=== PATIENT | female | born 1985 | race Caucasian/White ===

== ENCOUNTER 2016-12-01 14:10 | Emergency (ER) | payer BC, MEDICAID ==
[~2016-12-01] VITALS: Ht 149.9 cm; Wt 80.0 kg
[~2016-12-01 14:10] MED LIST: AZIT500T3 PO; BACTDS PO; BEN50 PO; CIPR500T4 PO; HYDR-3498 PO; IBUP-1542 PO; IBUP800T25 PO; LEVO500T72 PO; METR500T PO; ONDA4TAB35 PO; PRED20TA PO
[2016-12-01 14:40] VITALS: Ht 149.9 cm; Wt 80.0 kg
[2016-12-01] MEDS ORDERED: LIDOCAINE/MYLANTA 40 ML BTL PO STA (17:59)
[2016-12-01 18:11] LABS: ADD SCAN DIFF NO
[2016-12-01 18:16] LABS: BASOPHILS % 0.2 % (0.0-2.0); EOSINOPHILS # 0.2 10^3/ul (0.0-0.5); EOSINOPHILS % 1.9 % (0.0-7.0); HEMATOCRIT 42.9 % (37.0-47.0); HEMOGLOBIN 14.2 g/dl (12.0-16.0); MEAN CORPUSCULAR HEMOGLOBIN 29.6 pg (29.0-33.0); MEAN CORPUSCULAR HGB CONC 33.1 g/dl (32.0-37.0); MEAN CORPUSCULAR VOLUME 89.4 fl (82.0-101.0); MEAN PLATELET VOLUME 11.1 fl (7.4-10.4); MONOCYTE # 0.6 10^3/ul (0.3-0.9); MONOCYTES % 6.1 % (0.0-11.0); NEUTROPHIL # 6.2 10^3/ul (1.6-7.5); NEUTROPHILS % 61.4 % (39.0-77.0); PLATELET COUNT 232 10^3/UL (140-415); RED CELL DISTRIBUTION WIDTH 12.4 % (11.5-14.5); WHITE BLOOD COUNT 10.1 10^3/ul (4.8-10.8)
[2016-12-01 18:36] LABS: ALBUMIN 4.4 g/dl (3.3-4.9); ALBUMIN/GLOBULIN RATIO 1.51; BILIRUBIN,INDIRECT 0.1 mg/dl (0-1.1); BILIRUBIN,TOTAL 0.1 mg/dl (0.2-1.3); CALCIUM 9.6 mg/dl (8.4-10.2); POTASSIUM 3.7 mmol/L (3.5-5.1); TOTAL PROTEIN 7.3 g/dl (6.1-8.1)
--- NOTE | 2016-12-01 18:38 | ERD ---
ER Documentation Chief Complaint Date/Time DATE: 12/01/16 TIME: 18:37 Chief Complaint AP HPI 31-year-old female with history of obesity comes emergency room with epigastric pain for the past week and a half. Patient states that it is localized in the epigastric region for the most part and radiates upwards to the chest, constant , dull. She has not tried anything for this. She reports mild nausea. No fevers or chills, vomiting or diarrhea. ROS All systems reviewed and are negative except as per history of present illness. Medications Home Meds Active Scripts Ondansetron (Ondansetron Odt) 4 Mg Tab.rapdis, 4 MG PO Q6H Y for NAUSEA AND/OR VOMITING, #10 TAB Prov:FLORENTINO KRISHNAMURTHY PA-C 12/01/16 Omeprazole* (Omeprazole*) 20 Mg Capsule.dr, 20 MG PO DAILY, #30 Prov:FLORENTINO KRISHNAMURTHY PA-C 12/01/16 Ranitidine Hcl* (Zantac*) 150 Mg Tablet, 150 MG PO BID Y for EPIGASTRIC PAIN, # 30 TAB Prov:FLORENTINO KRISHNAMURTHY PA-C 12/01/16 Ibuprofen* (Motrin*) 600 Mg Tab, 600 MG PO Q6 Y for FEVER, #30 TAB Prov:IMTIAZ GUTIERREZ MD 09/01/15 Azithromycin* (Zithromax*) 500 Mg Tablet, 500 MG PO DAILY for 7 Days, TAB Prov:IMTIAZ GUTIERREZ MD 09/01/15 Ciprofloxacin Hcl* (Ciprofloxacin Hcl*) 500 Mg Tablet, 500 MG PO BID for 3 Days , TAB Prov:RIO VELARDE MD 04/10/15 Ibuprofen* (Motrin*) 800 Mg Tab, 800 MG PO Q6H Y for PAIN AND OR ELEVATED TEMP, #30 TAB Prov:RIO VELARDE MD 04/10/15 Sulfamethoxazole-Trimethoprim* (Bactrim* DS) 800-160 Mg Tab, 1 TAB PO BID for 10 Days, TAB Prov:FLORENTINO KRISHNAMURTHY PA-C 01/12/15 Diphenhydramine Hcl* (Benadryl*) 50 Mg Cap, 50 MG PO Q6 Y for ITCHING, #14 Prov:FLORENTINO KRISHNAMURTHY PA-C 01/12/15 Prednisone* (Prednisone*) 20 Mg Tab, 20 MG PO BID for 5 Days Prov:FLORENTINO KRISHNAMURTHY PA-C 01/12/15 Metronidazole* (Flagyl*) 500 Mg Tablet, 500 MG PO TID for 7 Days, TAB Prov:JAY LÓPEZ MD 01/10/15 Levofloxacin* (Levaquin*) 500 Mg Tablet, 500 MG PO DAILY for 7 Days, TAB Prov:JAY LÓPEZ MD 01/10/15 Hydrocodone Bit-Acetaminophen* ([place]*) 5-325 Mg Tab, 1 TAB PO Q6 Y for PAIN, # 20 TAB Prov:JAY LÓPEZ MD 01/10/15 Ondansetron Hcl* (Zofran* ODT) 4 mg -ODT Tab.disper, 4 MG PO Q6 Y for NAUSEA AND /OR VOMITING, #10 TAB Prov:JAY LÓPEZ MD 01/10/15 Allergies Allergies: Coded Allergies: No Known Drug Allergy (Verified Allergy, Mild, 12/01/16) PMhx/Soc History of Surgery: No Anesthesia Reaction: No Hx Neurological Disorder: No Hx Respiratory Disorders: No Hx Cardiac Disorders: No Hx Psychiatric Problems: No Hx Miscellaneous Medical Probl: No Hx Alcohol Use: No Hx Substance Use: No Hx Tobacco Use: No Smoking Status: Never smoker Physical Exam Vitals Vital Signs Date Time Temp Pulse Resp B/P Pulse Ox O2 Delivery O2 Flow Rate FiO2 12/01/16 14:40 98.5 72 18 132/59 98 Physical Exam General: Well-developed, well-nourished. The patient appears in no acute distress. HEENT: Head is normocephalic, atraumatic. No scleral icterus. Neck: Supple. Nontender. Lungs: Clear to auscultation. Normal air movement. Heart: Regular rate and rhythm. S1 and S2 are normal. No murmurs, gallops, or rubs. Abdomen: Soft, tender in the epigastrium, nondistended. Bowel sounds are normoactive. Negative Reinoso sign, no McBurney's tenderness. Extremities: No clubbing or cyanosis. Normal pulses. Moving extremities x 4. No weakness. Neurologic: Alert and oriented 3. No focal deficits. Skin: Normal turgor. No rash or lesions. Result Diagram: 12/01/16180412/01/161804 Results 24 hrs Laboratory Tests Test 12/01/16 18:05 12/01/16 18:15 White Blood Count 10.110^3/ul Red Blood Count 4.8010^6/ul Hemoglobin 14.2g/dl Hematocrit 42.9% Mean Corpuscular Volume 89.4fl Mean Corpuscular Hemoglobin 29.6pg Mean Corpuscular Hemoglobin Concent 33.1g/dl Red Cell Distribution Width 12.4% Platelet Count 40424^3/UL Mean Platelet Volume 11.1fl Neutrophils % 61.4% Lymphocytes % 30.0% Monocytes % 6.1% Eosinophils % 1.9% Basophils % 0.2% Nucleated Red Blood Cells % 0.0/100WBC Neutrophils # 6.210^3/ul Lymphocytes # 3.010^3/ul Monocytes # 0.610^3/ul Eosinophils # 0.210^3/ul Basophils # 0.010^3/ul Nucleated Red Blood Cells # 0.010^3/ul Sodium Level 143mmol/L Potassium Level 3.7mmol/L Chloride Level 107mmol/L Carbon Dioxide Level 24mmol/L Anion Gap 16 Blood Urea Nitrogen 13mg/dl Creatinine 1.00mg/dl Glucose Level 85mg/dl Calcium Level 9.6mg/dl Total Bilirubin 0.1mg/dl Direct Bilirubin 0.00mg/dl Indirect Bilirubin 0.1mg/dl Aspartate Amino Transf (AST/SGOT) 27IU/L Alanine Aminotransferase (ALT/SGPT) 26IU/L Alkaline Phosphatase 92IU/L Total Protein 7.3g/dl Albumin 4.4g/dl Globulin 2.90g/dl Albumin/Globulin Ratio 1.51 Lipase 180U/L Urine Color YELLOW Urine Clarity CLEAR Urine pH 7.0 Urine Specific [place] 1.014 Urine Ketones NEGATIVEmg/dL Urine Nitrite NEGATIVEmg/dL Urine Bilirubin NEGATIVEmg/dL Urine Urobilinogen NEGATIVEmg/dL Urine Leukocyte Esterase TRACELeu/ul Urine Microscopic RBC 1/HPF Urine Microscopic WBC 0/HPF Urine Squamous Epithelial Cells FEW/HPF Urine Hemoglobin NEGATIVEmg/dL Urine Glucose NEGATIVEmg/dL Urine Total Protein 1+mg/dl Current Medications Medications (Trade) Dose Ordered Sig/Denae Route PRN Reason Start Time Stop Time Status Last Admin Dose Admin Miscellaneous Medication (Gi Cocktail (2)) 40 ml ONCE STAT PO 12/01/16 17:59 12/01/16 18:00 DC 12/01/16 18:51 DIAGNOSTIC IMAGING REPORT Patient: MATIAS JOSUE : 1985 Age: 31 Sex: F MR #: [id number] DOS: 12/01/16 1759 Ordering MD: FLORENTINO KRISHNAMURTHY PA-C Location: [facility] Room/Bed: PROCEDURE: US Abdomen. CLINICAL INDICATION: Abdominal pain TECHNIQUE: Multiple real-time images were acquired of the patient's right upper abdomen utilizing a high resolution transducer. COMPARISON: None available FINDINGS: No shadowing gallstone, gallbladder wall thickening or pericholecystic fluid is identified. There is a non mobile, nonshadowing gallbladder polypoid echogenic focus measuring 5 mm, compatible with a polyp. No intra or extrahepatic biliary dilatation is seen. The common bile duct measures 3 mm in diameter. The liver appears unremarkable in size and echotexture. The pancreas is not well visualized due to overlying bowel gas. The right kidney appears unremarkable, measuring 8 cm cm in length. No free fluid is seen. IMPRESSION: No sonographic evidence of cholecystitis. 5 mm gallbladder polyp. RPTAT: VV .Harshad Matthews MD, MD Date Time Electronically viewed and signed by .Harshad Matthews MD, on 12/01/2016 19:31 .O/ CC: FLORENTINO KRISHNAMURTHY PA-C Procedures/MDM ED course: Patient was given a GI cocktail for pain. She was reassessed, and reports that her pain is better after the GI cocktail. MDM: 31-year-old female comes in with epigastric abdominal pain, comes in with likely gastritis versus GERD. There is no evidence of leukocytosis, transaminitis, pain or pancreatitis. Gallbladder ultrasound was unremarkable. No evidence of an acute hepatobiliary process, stable for discharge. Departure Diagnosis: Primary Impression: Abdominal pain Condition: Good FLORENTINO KRISHNAMURTHY PA-C Dec 01, 2016 18:38
[2016-12-01 19:28] LABS: ADD UMIC YES; UR ASCORBIC ACID 20 mg/dL (NEGATIVE); UR BILIRUBIN (Dip) NEGATIVE (NEGATIVE); UR BLOOD (Dip) NEGATIVE (NEGATIVE); UR CLARITY CLEAR (CLEAR); UR COLOR YELLOW (YELLOW); UR GLUCOSE (Dip) NEGATIVE (NEGATIVE); UR KETONES (Dip) NEGATIVE (NEGATIVE); UR LEUKOCYTE ESTERASE (Dip) TRACE Leu/ul (NEGATIVE); UR NITRITE (Dip) NEGATIVE (NEGATIVE); UR RBC 1 /HPF (0-5); UR SPECIFIC GRAVITY (Dip) 1.014 (1.003-1.030); UR SQUAMOUS EPITHELIAL CELL FEW /HPF (FEW); UR TOTAL PROTEIN (Dip) 1+ mg/dl (NEGATIVE); UR UROBILINOGEN (Dip) NEGATIVE (NEGATIVE)
--- NOTE | 2016-12-01 19:31 | RADRPT ---
PROCEDURE: US Abdomen. CLINICAL INDICATION: Abdominal pain TECHNIQUE: Multiple real-time images were acquired of the patient's right upper abdomen utilizing a high resolution transducer. COMPARISON: None available FINDINGS: No shadowing gallstone, gallbladder wall thickening or pericholecystic fluid is identified. There i s a non mobile, nonshadowing gallbladder polypoid echogenic focus measuring 5 mm, compatible with a polyp. No intra or extrahepatic biliary dilatation is seen. The common bile duct measures 3 mm in d iameter. The liver appears unremarkable in size and echotexture. The pancreas is not well visualiz ed due to overlying bowel gas. The right kidney appears unremarkable, measuring 8 cm cm in length. No free fluid is seen. IMPRESSION: No sonographic evidence of cholecystitis. 5 mm gallbladder polyp. RPTAT: VV .Harshad Matthews MD, MD Date Time Electronically viewed and signed by .Harshad Matthews MD, on 12/01/2016 19:31 .O/
[2016-12-01] MEDS ORDERED: RANI150T9 PO (19:41)
[2016-12-01] MEDS ORDERED: OMEP20CA16 PO (19:41)
[2016-12-01] MEDS ORDERED: ONDA4TAB14 PO (19:41)
[2016-12-01 20:23] VITALS: BP 128/68; PULSE 70; RESP 18; TEMP 98.2
== END 2016-12-01 20:24 | disposition home or self-care (01) ==
LOC: FTE 14:10
DX: R10.13 Epigastric pain (principal); R11.0 Nausea; E66.9 Obesity, unspecified; Z68.35 Body mass index [BMI] 35.0-35.9, adult
CPT/HCPCS: 76705; 80053; 81001; 83690; 85025; Z7502; Z7610

== ENCOUNTER 2017-04-05 18:15 | Emergency (ER) | payer BC ==
[~2017-04-05] VITALS: Ht 147.3 cm; Wt 75.5 kg
[~2017-04-05 18:15] MED LIST changes: +OMEP20CA16 PO; +ONDA4TAB14 PO; +RANI150T9 PO
[2017-04-05 18:45] VITALS: Ht 147.3 cm; Wt 75.5 kg
[2017-04-05] MEDS ORDERED: HYDROCODONE/APAP (5/325) TAB PO ONE (21:00)
--- NOTE | 2017-04-05 21:30 | ERD ---
ER Documentation Chief Complaint Chief Complaint tripped/slipped in shower@1600 2day,hit her R sided,head,face,&neck,no KO HPI 31-year-old female presents after trip and fall in the shower and she fell backwards and hit her head. She did not lose consciousness and has not had any nausea or vomiting. She does have pain in the back of her head and neck. She also states that her right ear bled. No active bleeding at this time. She took Motrin for pain which helps temporarily but then it wears off and the pain comes back. ROS All systems reviewed and are negative except as per history of present illness. Medications Home Meds Active Scripts Hydrocodone/Acetaminophen (Elvaston 5-325 Tablet) 1 Each Tablet, 1 EACH PO Q6, #15 TAB Prov:MELONY BAUGH PA-C 04/05/17 Ibuprofen* (Motrin*) 800 Mg Tab, 800 MG PO Q6, #30 TAB Prov:MELONY BAUGH PA-C 04/05/17 Ondansetron (Ondansetron Odt) 4 Mg Tab.rapdis, 4 MG PO Q6H Y for NAUSEA AND/OR VOMITING, #10 TAB Prov:FLORENTINO KRISHNAMURTHY PA-C 12/01/16 Omeprazole* (Omeprazole*) 20 Mg Capsule.dr, 20 MG PO DAILY, #30 Prov:FLORENTINO KRISHNAMURTHY PA-C 12/01/16 Ranitidine Hcl* (Zantac*) 150 Mg Tablet, 150 MG PO BID Y for EPIGASTRIC PAIN, # 30 TAB Prov:FLORENTINO KRISHNAMURTHY PA-C 12/01/16 Ibuprofen* (Motrin*) 600 Mg Tab, 600 MG PO Q6 Y for FEVER, #30 TAB Prov:IMTIAZ GUTIERREZ MD 09/01/15 Azithromycin* (Zithromax*) 500 Mg Tablet, 500 MG PO DAILY for 7 Days, TAB Prov:IMTIAZ GUTIERREZ MD 09/01/15 Ciprofloxacin Hcl* (Ciprofloxacin Hcl*) 500 Mg Tablet, 500 MG PO BID for 3 Days , TAB Prov:RIO VELARDE MD 04/10/15 Ibuprofen* (Motrin*) 800 Mg Tab, 800 MG PO Q6H Y for PAIN AND OR ELEVATED TEMP, #30 TAB Prov:RIO VELARDE MD 04/10/15 Sulfamethoxazole-Trimethoprim* (Bactrim* DS) 800-160 Mg Tab, 1 TAB PO BID for 10 Days, TAB Prov:FLORENTINO KRISHNAMURTHY PA-C 01/12/15 Diphenhydramine Hcl* (Benadryl*) 50 Mg Cap, 50 MG PO Q6 Y for ITCHING, #14 Prov:FLORENTINO KRISHNAMURTHY PA-C 01/12/15 Prednisone* (Prednisone*) 20 Mg Tab, 20 MG PO BID for 5 Days Prov:FLORENTINO KRISHNAMURTHY PA-C 01/12/15 Metronidazole* (Flagyl*) 500 Mg Tablet, 500 MG PO TID for 7 Days, TAB Prov:JAY LÓPEZ MD 01/10/15 Levofloxacin* (Levaquin*) 500 Mg Tablet, 500 MG PO DAILY for 7 Days, TAB Prov:JAY LÓPEZ MD 01/10/15 Hydrocodone Bit-Acetaminophen* ([place]vast[place]*) 5-325 Mg Tab, 1 TAB PO Q6 Y for PAIN, # 20 TAB Prov:JAY LÓPEZ MD 01/10/15 Ondansetron Hcl* (Zofran* ODT) 4 mg -ODT Tab.disper, 4 MG PO Q6 Y for NAUSEA AND /OR VOMITING, #10 TAB Prov:JAY LÓPEZ MD 01/10/15 Allergies Allergies: Coded Allergies: No Known Drug Allergy (Verified Allergy, Mild, 12/01/16) PMhx/Soc Medical and Surgical Hx: pt denies Medical Hx, pt denies Surgical Hx History of Surgery: No Anesthesia Reaction: No Hx Neurological Disorder: No Hx Respiratory Disorders: No Hx Cardiac Disorders: No Hx Psychiatric Problems: No Hx Miscellaneous Medical Probl: No Hx Alcohol Use: No Hx Substance Use: No Hx Tobacco Use: No Smoking Status: Never smoker FmHx Family History: No diabetes Physical Exam Vitals Vital Signs Date Time Temp Pulse Resp B/P Pulse Ox O2 Delivery O2 Flow Rate FiO2 04/05/17 18:45 99.5 79 18 113/69 98 Physical Exam INITIAL VITAL SIGNS: Reviewed by me GENERAL: Awake, alert and oriented x 4, well appearing, nontoxic, speaking in full sentences. No acute distress HEAD: Atraumatic NECK: Supple. No masses. Full range of motion. No meningismus. No midline tenderness. EYES: EOMI. PERRL. EAR: No tenderness over the mastoids bilaterally. No exudates in the canals. TMs nonerythematous. Dried blood in the right ear canal, no active bleeding RESPIRATORY: Clear to auscultation bilaterally. Symmetric chest wall rise. No wheezing or rales. No accessory muscle use. CV: Regular rate and rhythm. No murmurs, rubs, or gallops. EXTREMITIES: No clubbing or cyanosis. No edema. Moving all extremities normally. BACK: No midline tenderness to palpation. No step-offs. SKIN: Warm and dry. No rash or petechiae. NEUROLOGIC: Normal mental status and speech. Face is symmetric. Moves all extremities equally. Motor and sensory distally intact. Normal coordination. Ambulates with a strong steady gait. 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 She is well-appearing in no distress and her neurological examination is normal. It is possible she may have ruptured her tympanic membrane is difficult to tell on physical exam secondary to the bleeding but I explained her this should resolve on its own and she is to continue to take anti-inflammatories and pain medication in the meantime. CT scan of cervical spine and brain was ordered. She was given Elvaston for pain control. Patient's imaging was negative. She was discharged with ibuprofen and Elvaston. He was given copy of the reports she can follow-up with primary care. Patient counseled regarding my diagnostic impression and care plan. Prior to discharge all questions answered. Pt agrees with treatment plan and understands strict return precautions. Pt is instructed to follow up with primary care provider within 24-48 hours. Precautionary instructions provided including instructions to return to the ER if not improving or for any worsening or changing symptoms or concerns. Departure Diagnosis: Primary Impression: Acute head injury Additional Impression: Cervical strain Condition: Stable MELONY BAUGH PA-C Apr 05, 2017 21:30
--- NOTE | 2017-04-05 21:35 | RADRPT ---
PROCEDURE: CT cervical spine without contrast CLINICAL INDICATION: Trauma. Neck pain. TECHNIQUE: CT scan of the cervical spine was performed [facility] No [facility] contrast was administered. Coronal and sagittal reformatted images were obtained from th e axial source images. Images were reviewed on a high-resolution PACS workstation. One or more the f ollowing does reduction techniques were utilized: Automated exposure control, adjustment of the mA/ or kV according to patient's size, or use of iterative reconstruction technique. Exam CTDI = 22.1 mG y and the DLP = 410.02 mGy-cm. COMPARISON: None available. FINDINGS: There is reversal of normal cervical lordosis centered at C4-C5. Alignment remains intact. No acut e fracture or dislocation is seen. The vertebral body heights and disk spaces are preserved. No sig nificant spinal canal or foraminal stenosis is noted. No mass, hematoma, or other soft tissue abnor mality is seen. IMPRESSION: 1. Reversal of normal cervical lordosis centered at C4-C5. 2. No acute fracture or traumatic subluxation. RPTAT: HFN .Leslie Craig MD, MD Date Time Electronically viewed and signed by .Leslie Craig MD, MD on 04/05/2017 21:35 .N/
--- NOTE | 2017-04-05 21:36 | RADRPT ---
PROCEDURE: CT Brain without. CLINICAL INDICATION: Trauma, pain. TECHNIQUE: A CT of the brain was performed on multidetector high-resolution CT scanner utilizing a xial sections from the skull base through the vertex without contrast. The scan was reviewed in sof t tissue brain and high frequency resolution bone algorithm windows. Images were reviewed on a high -resolution PACS workstation. One or more the following does reduction techniques were utilized: Aut omated exposure control, adjustment of the mA/ or kV according to patient's size, or use of iterativ e reconstruction technique. The exam CTDI = 43.05 mGy and the DLP = 630.2 mGy-cm. COMPARISON: None available. FINDINGS: The ventricles and sulci are age-appropriate. There is no intracranial hemorrhage, mass effect or mi dline shift. No abnormal intra-axial or extra-axial fluid collections are seen. The billings/white carlos alberto er differentiation is preserved. No acute skull abnormality is noted. The visualized paranasal sinus es are essentially clear. IMPRESSION: 1. No acute intracranial hemorrhage, transcortical infarction or mass effect. RPTAT: HFN .Leslie Craig MD, MD Date Time Electronically viewed and signed by .Leslie Craig MD, MD on 04/05/2017 21:36 .N/
[2017-04-05] MEDS ORDERED: HYDR-906 PO (21:41)
[2017-04-05] MEDS ORDERED: IBUP800T25 PO (21:41)
[2017-04-05 22:04] VITALS: BP 113/69; PULSE 88; RESP 18; TEMP 99.1
== END 2017-04-05 22:05 | disposition home or self-care (01) ==
LOC: FTE 18:15
DX: S09.90XA Unspecified injury of head, initial encounter (principal); S16.1XXA Strain of muscle, fascia and tendon at neck level, initial encounter; R51 Headache; W18.2XXA Fall in (into) shower or empty bathtub, initial encounter; Y92.9 Unspecified place or not applicable
CPT/HCPCS: 70450; 72125; Z7502; Z7610

== ENCOUNTER 2017-04-29 17:27 | Emergency (ER) | payer BC ==
[~2017-04-29] VITALS: Ht 157.5 cm; Wt 74.6 kg
[~2017-04-29 17:27] MED LIST changes: +HYDR-906 PO
[2017-04-29 17:32] VITALS: Ht 157.5 cm; Wt 74.6 kg
[2017-04-29] MEDS ORDERED: ACETAMINOPHEN 500 MG TAB PO STA (18:06)
[2017-04-29] MEDS ORDERED: ACET500C5 PO (19:06)
[2017-04-29 19:14] VITALS: BP 106/80; PULSE 89; RESP 18; TEMP 98.6
[2017-04-29 19:43] LABS: URINE BLOOD (Dip) POC Trace-lysed (NEGATIVE)
--- NOTE | 2017-04-29 20:15 | RADRPT ---
PROCEDURE: OB Ultrasound. CLINICAL INDICATION: Positive test. Pelvic pain. TECHNIQUE: Ultrasound of the pelvis was performed with transabdominal and transvaginal sonography in the axial and sagittal planes. COMPARISON: No prior study is available for comparison. FINDINGS: There is a single intrauterine gestational sac. pole is not visualized. Yolk sac is present. Mean sac diameter is 0.82 cm. Menstrual age by ultrasound dates is 5 weeks 3 days. This indicates an expected date of delivery of 12/27/2017. The right ovary appears normal measuring 3.9 x 2.6 x 2.4 cm. The left ovary is not visualized. Color Doppler and pulsed Doppler sonography demonstrate normal flow to the right ovary. There is no other pelvic mass or free fluid. IMPRESSION: 1. Single early intrauterine gestational sac with pole not yet visualized. Yolk sac is presen t. 2. Menstrual age by ultrasound dates is 5 weeks 3 days with an expected date of delivery of 018. 3. Left ovary not visualized. 4. Otherwise unremarkable study. RPTAT: QQ .Won Mejia MD, Date Time Electronically viewed and signed by .Won Mejia MD, on 04/29/2017 20:14 .R/
--- NOTE | 2017-04-29 21:28 | ERD ---
ER Documentation Chief Complaint Chief Complaint complains of a fever x 3 days HPI 31-year-old female presented ED complaining of fever 3 days. States that her temperature at home was 100.5. Patient reports body ache, headache, throat pain, and neck pain. Patient also has slight cough and slight diarrhea. She had 2 episode of nonbloody diarrhea. She stated that she found out she is . LMP was 04/01/2017. Denies vaginal bleeding. Denies shortness of breath. Denies abdominal pain, nausea, or vomiting. Denies vaginal bleeding. ROS All systems reviewed and are negative except as per history of present illness. Medications Home Meds Active Scripts Acetaminophen* (Tylophen*) 500 Mg Capsule, 1 CAP PO Q6H Y for PAIN AND OR ELEVATED TEMP, #20 CAP Prov:VERONICA GARCÍA DISC JOCKEY 04/29/17 Hydrocodone/Acetaminophen ([place] 5-325 Tablet) 1 Each Tablet, 1 EACH PO Q6, #15 TAB Prov:MELONY BAUGH PA-C 04/05/17 Ibuprofen* (Motrin*) 800 Mg Tab, 800 MG PO Q6, #30 TAB Prov:MELONY BAUGH PA-C 04/05/17 Ondansetron (Ondansetron Odt) 4 Mg Tab.rapdis, 4 MG PO Q6H Y for NAUSEA AND/OR VOMITING, #10 TAB Prov:FLORENTINO KRISHNAMURTHY PA-C 12/01/16 Omeprazole* (Omeprazole*) 20 Mg Capsule.dr, 20 MG PO DAILY, #30 Prov:FLORENTINO KRISHNAMURTHY PA-C 12/01/16 Ranitidine Hcl* (Zantac*) 150 Mg Tablet, 150 MG PO BID Y for EPIGASTRIC PAIN, # 30 TAB Prov:FLORENTINO KRISHNAMURTHY PA-C 12/01/16 Ibuprofen* (Motrin*) 600 Mg Tab, 600 MG PO Q6 Y for FEVER, #30 TAB Prov:IMTIAZ GUTIERREZ MD 09/01/15 Azithromycin* (Zithromax*) 500 Mg Tablet, 500 MG PO DAILY for 7 Days, TAB Prov:IMTIAZ GUTIERREZ MD 09/01/15 Ciprofloxacin Hcl* (Ciprofloxacin Hcl*) 500 Mg Tablet, 500 MG PO BID for 3 Days , TAB Prov:RIO VELARDE MD 04/10/15 Ibuprofen* (Motrin*) 800 Mg Tab, 800 MG PO Q6H Y for PAIN AND OR ELEVATED TEMP, #30 TAB Prov:RIO VELARDE MD 04/10/15 Sulfamethoxazole-Trimethoprim* (Bactrim* DS) 800-160 Mg Tab, 1 TAB PO BID for 10 Days, TAB Prov:FLORENTINO KRISHNAMURTHY PA-C 01/12/15 Diphenhydramine Hcl* (Benadryl*) 50 Mg Cap, 50 MG PO Q6 Y for ITCHING, #14 Prov:FLORENTINO KRISHNAMURTHY PA-C 01/12/15 Prednisone* (Prednisone*) 20 Mg Tab, 20 MG PO BID for 5 Days Prov:FLORENTINO KRISHNAMURTHY PA-C 01/12/15 Metronidazole* (Flagyl*) 500 Mg Tablet, 500 MG PO TID for 7 Days, TAB Prov:JAY LÓPEZ MD 01/10/15 Levofloxacin* (Levaquin*) 500 Mg Tablet, 500 MG PO DAILY for 7 Days, TAB Prov:JAY LÓPEZ MD 01/10/15 Hydrocodone Bit-Acetaminophen* ([place]*) 5-325 Mg Tab, 1 TAB PO Q6 Y for PAIN, # 20 TAB Prov:JAY LÓPEZ MD 01/10/15 Ondansetron Hcl* (Zofran* ODT) 4 mg -ODT Tab.disper, 4 MG PO Q6 Y for NAUSEA AND /OR VOMITING, #10 TAB Prov:JAY LÓPEZ MD 01/10/15 Allergies Allergies: Coded Allergies: No Known Drug Allergy (Verified Allergy, Mild, 12/01/16) PMhx/Soc Medical and Surgical Hx: pt denies Medical Hx, pt denies Surgical Hx History of Surgery: No Anesthesia Reaction: No Hx Neurological Disorder: No Hx Respiratory Disorders: No Hx Cardiac Disorders: No Hx Psychiatric Problems: No Hx Miscellaneous Medical Probl: No Hx Alcohol Use: No Hx Substance Use: No Hx Tobacco Use: No Smoking Status: Never smoker Physical Exam Vitals Vital Signs Date Time Temp Pulse Resp B/P Pulse Ox O2 Delivery O2 Flow Rate FiO2 04/29/17 19:14 98.6 89 18 106/80 99 Room Air 04/29/17 17:32 98.4 91 20 131/67 100 Physical Exam General: Well-developed, well-nourished, conscious and coherent, in no distress Skin: Warm and dry without rash, good texture and turgor Head: Normocephalic without evidence of trauma Eyes: Sclera and conjunctivae normal; pupils equal, round, and reactive to light; extraocular movements are intact Ears: Canals are patent. Tympanic membranes are clear Nose/Face: Is a mucosa erythematous and swollen. Mouth/throat: Mucous membranes are moist. Posterior pharynx mildly erythematous and swollen without exudates. Neck: Supple without meningismus or adenopathy. Carotids are equal. Trachea midline. No bruits or JVD Chest: Normal AP diameter. Good expansion without retractions. Nontender. Lungs are clear to auscultate bilaterally with good tidal volume Heart: Regular rate and rhythm. No murmur, rub, or gallops heard Abdomen: Soft and nontender without masses, guarding, or rebound. Bowel sounds are active. No hepatosplenomegaly Back: Without spinal or CVA tenderness Pelvis: Nontender to palpation and stable to compression Extremities: Full range of motion. Good strength bilaterally. No clubbing, cyanosis, or edema. Peripheral pulses are intact. Sensation intact Neuro: Alert and oriented 4, GCS 15. Cranial nerves grossly intact. Motor and sensory exams nonfocal. Moves all extremities. Speech clear. Gait normal Results 24 hrs Laboratory Tests Test 04/29/17 19:41 Bedside Urine pH (LAB) 6.0 Bedside Urine Protein (LAB) 2+ Bedside Urine Glucose (UA) Negative Bedside Urine Ketones (LAB) Negative Bedside Urine Blood Trace-lysed Bedside Urine Nitrite (LAB) Negative Bedside Urine Leukocyte Esterase (L Trace Current Medications Medications (Trade) Dose Ordered Sig/Denae Route PRN Reason Start Time Stop Time Status Last Admin Dose Admin Acetaminophen (Tylenol Tab) 500 mg ONCE STAT PO 04/29/17 18:06 04/29/17 18:08 DC 04/29/17 18:21 Procedures/MDM Well-appearing 33-year-old female presented ED with fever and body ache 3 days. Rapid strep and influenza a and B swab were negative. I suspect the patient may have a viral infection. Patient is afebrile, in no respiratory distress. Lungs are clear to auscultate. I doubt that patient has pneumonia or bronchitis. Patient given Tylenol in the ED for pain. Patient stated that she is , but she did not have any vaginal bleeding. I have low suspicion for ectopic . I discharge patient for viral infection. After patient's discharge, she complained to charge nurse that we did not address her concerns. She now claims that she has pelvic pain. Patient states that her previous she had a spontaneous at 8 weeks. OB ultrasound was obtained. OB ultrasound showed intrauterine gestational sac and yolk sac, pole not yet visualized. Gestational age is measured at 5 weeks 3 days from the ultrasound. This appears to be normal for her gestational age. Patient is advised to follow-up with her OB. Patient appears well, stable for discharge and outpatient management. Medical decision making shared with patient and family. Education provided to patient and family. Patient and family expressed understanding of the plan. Medications on discharge: Tylenol. Follow-up: Primary care provider in 2-3 days or return to ED if worse. Disclaimer: Inadvertent spelling and grammatical errors are likely due to EHR/ dictation software use and do not reflect on the overall quality of patient care. Also, please note that the electronic time recorded on this note does not necessarily reflect the actual time of the patient encounter. Departure Diagnosis: Primary Impression: Fever Fever type: unspecified Qualified Code: R50.9 - Fever, unspecified fever cause Additional Impression: Intrauterine Condition: Stable Patient Instructions: Fever Control (Adult) Referrals: HUE DIAZ (PCP) Additional Instructions: Llame al doctor MAANA y zachary lizeth JORGE PARA DENTRO DE 2-3 ARANGO.Dgale a la secretaria que nosotros le instruimos hacer esta jorge.Avise o llame si delgado condicin se empeora antes de la jorge. Regresa aqui si peor o no mejor. VERONICA GARCÍA NP Apr 29, 2017 21:23
== END 2017-04-29 20:25 | disposition home or self-care (01) ==
LOC: FTE 17:27 → E/R 20:25
DX: O99.89 Other specified diseases and conditions complicating pregnancy, childbirth and the puerperium (principal); R50.9 Fever, unspecified; R10.2 Pelvic and perineal pain; Z3A.01 Less than 8 weeks gestation of pregnancy
CPT/HCPCS: 76801; 76817; 81003; 87400; 87880; Z7502; Z7610

== ENCOUNTER 2017-06-09 14:12 | Emergency (ER) | END 2017-06-09 19:01 | disposition home or self-care (01) ==

== ENCOUNTER 2017-06-15 13:06 | Emergency (ER) | END 2017-06-15 15:00 | disposition left against medical advice (07) ==

== ENCOUNTER 2017-07-31 07:50 | Emergency (ER) | END 2017-07-31 11:25 | disposition home or self-care (01) ==

== ENCOUNTER 2017-08-14 03:51 | Inpatient (IN) | END 2017-08-16 18:08 | disposition home or self-care (01) | DRG 781 ==

== ENCOUNTER 2017-09-29 15:15 | Inpatient (IN) | END 2017-09-30 16:13 | disposition home or self-care (01) | DRG 781 ==

== ENCOUNTER 2017-12-04 07:52 | Outpatient (CLI) | END 2017-12-04 09:30 | disposition home or self-care (01) ==

== ENCOUNTER 2017-12-20 13:20 | Inpatient (IN) | END 2017-12-22 23:40 | disposition home or self-care (01) | DRG 775 ==

== ENCOUNTER 2018-11-15 23:37 | Emergency (ER) | payer SELFPAY ==
[~2018-11-15] VITALS: Ht 162.6 cm; Wt 87.8 kg
[~2018-11-15 23:37] MED LIST changes: -AZIT500T3 PO; -BACTDS PO; -BEN50 PO; -CIPR500T4 PO; +FER325 PO; -HYDR-3498 PO; -HYDR-906 PO; -IBUP-1542 PO; -IBUP800T25 PO; -LEVO500T72 PO; -METR500T PO; -OMEP20CA16 PO; -ONDA4TAB14 PO; -ONDA4TAB35 PO; -PRED20TA PO; -RANI150T9 PO
[2018-11-15 23:42] VITALS: BP 146/79; PULSE 64; RESP 20; Ht 162.6 cm; Wt 87.8 kg
== END 2018-11-16 01:10 | disposition left against medical advice (07) ==
LOC: FTE 23:37
DX: Z53.21 Procedure and treatment not carried out due to patient leaving prior to being seen by health care provider (principal)